=== PATIENT | male | born 1940 | race Caucasian/White ===

== ENCOUNTER 2016-04-27 09:23 | Outpatient (CLI) | payer MEDICARE, OTHER ==
[2013-05-15 16:13] VITALS: BP 118/62
== END 2016-04-27 09:24 ==
LOC: LAB 09:23
PROVIDERS: ATTEND Family Medicine
DX: E11.9 Type 2 diabetes mellitus without complications (principal)
CPT/HCPCS: 36415; 83036

== ENCOUNTER 2016-07-28 09:16 | Outpatient (CLI) | payer MEDICARE, OTHER ==
[2013-05-15 16:13] VITALS: BP 118/62
[2016-07-28 09:36] LABS: BASOPHILS % 0.4 (0.0-1.5); EOSINOPHILS % 2.4 % (0.0-6.8); MEAN CORPUSCULAR VOLUME 85.7 fl (80.0-100.0); MONOCYTES % 3.7 % (0.0-11.0); NEUTROPHILS # 3.2 # k/uL (1.4-7.7)
[2016-07-28 09:59] LABS: eGFR (African) > 60; eGFR (Non-African) > 60
== END 2016-07-28 09:17 ==
LOC: LAB 09:16
PROVIDERS: ATTEND Family Medicine
DX: E11.9 Type 2 diabetes mellitus without complications (principal); R41.3 Other amnesia; Z79.899 Other long term (current) drug therapy
CPT/HCPCS: 36415; 80053; 82607; 82746; 83036; 85025

== ENCOUNTER 2016-09-19 14:09 | Outpatient (CLI) | payer MEDICARE, OTHER ==
[2013-05-15 16:13] VITALS: BP 118/62
[2016-09-19 14:57] LABS: eGFR (African) > 60; eGFR (Non-African) > 60
--- NOTE | 2016-09-19 16:23 | Diagnostic Imaging Report ---
[facility] [address] [facility].[address] [address] Report Submission Date: Sep 19, 2016 4:08:52 PM CDT Patient Study Name: MAYURI JENKINS Date: Sep 19, 2016 2:25:50 PM CDT Modality Type: CR Gender: M Description: CHEST : 38 Institution: [facility] Physician: YASMIN VAZQUEZ Chest PA and lateral views Clinical history: Chest pain for 3 to 4 days Normal heart shadow and mediastinum. Clear lungs without acute infiltrate or pleural effusion. No pneumothorax. Normal appearing bony thorax. Impression: No active pulmonary pathology Electronically signed on Sep 19, 2016 4:08:52 PM CDT by: Simon RAJPUT
== END 2016-09-19 14:10 ==
LOC: RT 14:09
PROVIDERS: ATTEND Physician Assistant
DX: R07.9 Chest pain, unspecified (principal)
CPT/HCPCS: 36415; 71020; 80053; 84484

== ENCOUNTER 2016-11-06 10:44 | Outpatient (CLI) | payer MEDICARE, OTHER ==
[2013-05-15 16:13] VITALS: BP 118/62
== END 2016-11-06 10:45 ==
LOC: LAB 10:44
PROVIDERS: ATTEND Family Medicine
DX: E11.9 Type 2 diabetes mellitus without complications (principal)
CPT/HCPCS: 36415; 83036

== ENCOUNTER 2017-04-28 11:36 | Outpatient (CLI) | payer MEDICARE, OTHER ==
[2013-05-15 16:13] VITALS: BP 118/62
--- NOTE | 2017-04-28 12:17 | Diagnostic Imaging Report ---
[facility] [address] [facility].[address] 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 The pulmonary vasculature is normal. No pleural effusion, pneumothorax or alveolar consolidation. Impression: Negative Electronically signed on Apr 28, 2017 12:14:25 PM BRAKE LINING DRILLER by: Hussein RAJPUT
== END 2017-04-28 11:37 ==
LOC: LAB 11:36
PROVIDERS: ATTEND Family Medicine
DX: I25.9 Chronic ischemic heart disease, unspecified (principal); J20.9 Acute bronchitis, unspecified; R07.2 Precordial pain
CPT/HCPCS: 71020; 84484

== ENCOUNTER 2017-05-21 10:53 | Outpatient (CLI) | payer MEDICARE, OTHER ==
[2013-05-15 16:13] VITALS: BP 118/62
== END 2017-05-21 10:55 ==
LOC: LAB 10:53
PROVIDERS: ATTEND Family Medicine
DX: E11.9 Type 2 diabetes mellitus without complications (principal); E78.00 Pure hypercholesterolemia, unspecified
CPT/HCPCS: 36415; 80061; 83036

== ENCOUNTER 2017-06-08 13:32 | Emergency (ER) | payer MEDICARE, OTHER ==
[2017-06-08 14:01] LABS: BASOPHILS % 0.3 (0.0-1.5); MEAN CORPUSCULAR HEMOGLOBIN 29.6 pg (28.0-34.0); MEAN CORPUSCULAR VOLUME 85.6 fl (80.0-100.0); NEUTROPHILS # 3.6 # k/uL (1.4-7.7)
[2017-06-08] MEDS: ASPIRIN 81 MG CHEW TAB PO ONE (14:02)
[2017-06-08 14:07] LABS: eGFR (African) > 60; eGFR (Non-African) > 60
[2017-06-08] MEDS: KETOROLAC TROMETHAMINE 30 MG/1ML VIAL IVP ONE (15:08)
--- NOTE | 2017-06-08 16:33 | ED Physician Documentation ---
Chest Pain - HISTORIAN Historian: patient - HPI Stated Complaint: Chest Pain Chief Complaint: Chest Pain Additional Information: had flu last week, severe coughing, now gone Onset: days ago (2) Timing: sudden onset Duration: sudden-onset Last known Well Date: 06/06/17 Last Known Well Time: 00:00 Context: onset during:, activity Severity: mild Quality: sharp Front/Back of Body, Lg (Color): 1 - pain Chest Pain Radiation: no radiation Chest Pain Signs/Symptoms: denies: nausea, vomiting, diaphoresis, cool extremities, dizziness, dyspnea, tachypnea, tachycardia, hypotension, palpitations, weakness Worsened By: nothing Relieved By: nothing - ROS CONST: none MS/LYMPH: none GI/: none EYES/ENT: none SKIN/ENDO: none NEURO/PSYCH: none - PAST HX RI risk factors: hypertension, diabetes Type 2, hyperlipidemia, cardiac disease DVT/PE Risk Factors: none TAD/AAA risk factors: none Neuro deficit: none GI disease: none Lung disease: none Surgeries/Procedures: cardiac stent, other (eye surgery) Immunizations: referred to PCP Allergies/Adverse Reactions: Allergies Allergy/AdvReac Type Severity Reaction Status Date / Time No Known Allergies Allergy Unverified 06/08/17 13:43 Home Medications: Ambulatory Orders Medication Instructions Recorded [place]-3 Fatty Acids/Fish Oil [Fish 1 each PO DAILY #30 av 06/10/12 Oil 1,000 Mg Capsule] - SOCIAL HX Smoking History: non-smoker Alcohol Use: none Drug Use: none - FAMILY HX Family HX: none - VITAL SIGNS Vital Signs: Vital Signs Temp Pulse Resp BP Pulse Ox 97.1 F L 70 18 152/77 98 06/08/17 13:35 06/08/17 14:51 06/08/17 13:35 06/08/17 13:35 06/08/17 14:51 - REVIEWED ASSESSMENTS Nursing Assessment Reviewed: Yes Vitals Reviewed: Yes Progress - Results/Orders Results/Orders: cbc, cmp, ekg, trop, amylase, ua, cxr ordered - Progress Progress: pt. stable entire time in er, given asa 325 mg and toradol 30 mg ivp in er Critical Care Note - Critical Care Note Total Time (mins): 0 ED Results Lab/Radiology - Lab Results Lab Results: Lab Results 06/08/17 06/08/17 06/08/17 13:51 13:51 13:51 WBC 5.30 K/ul K/ul (4.00-12.00) RBC 4.29 M/ul M/ul (3.90-5.20) Hgb 12.7 g/dL g/dL (12.0-18.0) Hct 36.7 % L % (37.0-53.0) MCV 85.6 fl fl (80.0-100.0) MCH 29.6 pg pg (28.0-34.0) MCHC 34.5 g/dL g/dL (30.0-36.0) RDW 14.5 % H % (11.3-14.3) Plt Count 234 K/mm3 K/mm3 (130-400) Neut % (Auto) 68.2 % % (39.0-79.0) Lymph % (Auto) 22.8 % % (16.0-50.0) Ritchie % (Auto) 4.0 % % (0.0-11.0) Eos % (Auto) 2.0 % % (0.0-6.8) Baso % (Auto) 0.3 (0.0-1.5) Neut # (Auto) 3.6 # k/uL # k/uL (1.4-7.7) Lymph # (Auto) 1.2 # k/uL # k/uL (0.6-4.0) Ritchie # (Auto) 0.2 # k/uL # k/uL (0.0-0.9) Eos # (Auto) 0.1 # k/uL # k/uL (0.0-0.6) Baso # (Auto) 0.0 # k/uL # k/uL (0.0-0.5) Reactive Lymphs % 2.7 % % (0.0-5.0) Reactive Lymphs # 0.1 # k/uL # k/uL (0.0-0.8) Sodium 138 mmol/L mmol/L (136-145) Potassium 4.0 mmol/L mmol/L (3.5-5.1) Chloride 99 mmol/L mmol/L (98-107) Carbon Dioxide 26 mmol/L mmol/L (22-30) BUN 13 mg/dL mg/dL (9-20) Creatinine 1.10 mg/dL mg/dL (0.66-1.25) Estimated Creat Clear 55 Est GFR ( Amer) > 60 (60 - ) Est GFR (Non-Af Amer) > 60 (60 - ) Glucose 198 mg/dL H mg/dL (74-106) Calcium 9.1 mg/dL mg/dL (8.4-10.2) Total Bilirubin 0.8 mg/dL mg/dL (0.2-1.3) AST 27 U/L U/L (15-46) ALT 38 U/L U/L (13-69) Alkaline Phosphatase 66 U/L U/L (38-126) Troponin I < 0.03 ng/mL L ng/mL (0.03-0.06) Total Protein 6.6 g/dL g/dL (6.3-8.2) Albumin 4.0 g/dL g/dL (3.5-5.0) - Radiology Radiology Impressions: cxr neg - Orders Orders: ED Orders Category Date Time Status Continuous EKG monitoring Q30M Care 06/08/17 13:51 Active Continuous Pulse Oximetry Q30M Care 06/08/17 13:[address] IV Lock 1T Care 06/08/17 13:51 Active CHEST 2VIEW [RAD] Routine Exams 06/08/17 Ordered CBC/PLATELET/DIFF Routine Lab 06/08/17 13:51 Completed CMP Routine Lab 06/08/17 13:51 Completed TROPONIN I (cTnI) Stat Lab 06/08/17 13:51 Completed URINALYSIS Routine Lab 06/08/17 14:36 Ordered Aspirin Med 06/08/17 13:51 Discontinued 324 mg PO NOW ONE Ketorolac Tromethamine [Toradol] Med 06/08/17 14:54 Discontinued 30 mg IVP NOW ONE EKG WITH COMPARISON Stat Ther 06/08/17 13:51 Ordered Chest Pain Physical Exam - EXAM General Appearance: no acute distress, alert EENT: eye inspection normal, ENT inspection normal, pharynx normal, no signs of dehydration, NADIYA, no nystagmus, TM's nml Neck: nml inspection, no carotid bruit Respiratory: no resp. distress, nml breath sounds, other (tenderness left lateral chest) CVS: reg. rate & rhythm, no murmur, no gallop, no friction rub, pulses full, pulses equal Abdomen: soft, no organomegaly, normal bowel sounds, no abdominal bruit, no distension, non-tender Skin: warm/dry, normal color Extremities: non-tender, normal range of motion, no evidence of injury, no edema Neuro: oriented X3, CN's nml as tested, motor nml, sensation nml, mood/affect nml, cognition normal Discharge Clincal Impression: Chest wall muscle strain Qualifiers: Encounter type: initial encounter Qualified Code(s): S29.011A - Strain of muscle and tendon of front wall of thorax, initial encounter Referrals: Servando Cash MD [Primary Care Provider] - 2 Days Comments: Pt. discharged in stable condition with script for meloxicam 1 p.o. bid #10 Condition: Stable Disposition: 01 HOME, SELF-CARE Decision to Admit: NO Decision Time: 16:32
[2017-06-08 16:41] VITALS: BP 120/70
--- NOTE | 2017-06-08 19:07 | Diagnostic Imaging Report ---
PASHA MACHADO [facility] [address] [facility].[address] 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 History: CHEST PAIN X1 DAY. RT SIDE. (Hx) Comparison exam: 28 April 2017 Findings: PA lateral chest demonstrate a normal cardiac and mediastinal silhouette. Vascular calcifications involving the aortic arch. No focal infiltrate. No blunting of the costophrenic margins. Osseous structures are appropriate for age. Impression: No acute pulmonary process. Electronically signed on Jun 08, 2017 3:44:23 PM SENIOR PUBLICATIONS SPECIALIST by: Anatoliy RAJPUT
== END 2017-06-08 16:38 | disposition home or self-care (01) ==
LOC: ED 13:32
DX: S29.011A Strain of muscle and tendon of front wall of thorax, initial encounter (principal); I10 Essential (primary) hypertension; E11.9 Type 2 diabetes mellitus without complications; E78.5 Hyperlipidemia, unspecified; I51.9 Heart disease, unspecified; X58.XXXA Exposure to other specified factors, initial encounter; Y93.9 Activity, unspecified; Y92.9 Unspecified place or not applicable; Y99.9 Unspecified external cause status
CPT/HCPCS: 71046; 80053; 84484; 85025; 93005; J1885; 96374; 99282; 99283; S1016

== ENCOUNTER 2017-10-29 10:27 | Outpatient (CLI) | payer MEDICARE, OTHER | END 2017-10-29 10:30 | LOC: LAB 10:27 | PROVIDERS: ATTEND Family Medicine | DX: E11.9 Type 2 diabetes mellitus without complications (principal) | CPT/HCPCS: 36415; 83036 ==

== ENCOUNTER 2018-04-29 10:21 | Outpatient (CLI) | payer MEDICARE, OTHER | END 2018-04-29 10:22 | LOC: LAB 10:21 | PROVIDERS: ATTEND Family Medicine | DX: E11.9 Type 2 diabetes mellitus without complications (principal) | CPT/HCPCS: 36415; 83036 ==

== ENCOUNTER 2018-05-29 14:56 | Outpatient (CLI) | payer MEDICARE, OTHER ==
[2018-05-29 15:39] LABS: eGFR (Non-African) > 60
== END 2018-05-29 14:58 ==
LOC: LAB 14:56
PROVIDERS: ATTEND Internal Medicine Cardiovascular Disease
DX: I10 Essential (primary) hypertension (principal); I25.10 Atherosclerotic heart disease of native coronary artery without angina pectoris
CPT/HCPCS: 36415; 80053; 80061

== ENCOUNTER 2018-06-10 07:18 | Day surgery (SDC) | payer MEDICARE, OTHER ==
[2018-06-10] MEDS ORDERED: LIDOCAINE HCL 2% PF 100MG/5ML VIAL IJ ONE (08:48)
[2018-06-10] MEDS ORDERED: PROPOFOL 200 MG/20 ML VIAL IV ONE (08:48)
[2018-06-10] MEDS ORDERED: LACTATED RINGERS 1,000 ML IV.SOLN IV ONE (08:48)
--- NOTE | 2018-06-25 13:46 | GI Report ---
PROCEDURE PERFORMED: Colonoscopy. SURGEON: Uche Santos M.D., [place] INDICATION FOR PROCEDURE: This is a 77-year-old man who has had polyps in the past. He was referred for evaluation. PROCEDURE MEDICATION: Propofol, per Anesthesia. DESCRIPTION OF PROCEDURE: The Olympus video colonoscope was advanced through the rectum. At 60 cm he has a 0.5 cm polyp, removed with electrocautery. 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 The colonoscope was slowly advanced all the way to the cecum. The appendiceal orifice and terminal ileum were normal. On slow withdrawal, the cecum, ascending colon and transverse colon, no obvious intraluminal lesions noted. A polyp was removed at 60 cm. Extensive disease in the sigmoid colon. Retroflexion in the rectum was normal. RECOMMENDATIONS: 1. Pending the pathology of the polyp, follow-up colonoscopy in 5 years. 2. Increase fiber in the diet. UCHE SANTOS M.D., [place]. WILMER/david R: 06/24/18 Job#: [id number] Cc: Servando Cash M.D. [id number] [place] [address] Sent via ] [id number]
== END 2018-06-10 10:10 | disposition home or self-care (01) ==
LOC: OPSURG 07:18
PROVIDERS: ATTEND Internal Medicine Gastroenterology
DX: Z12.11 Encounter for screening for malignant neoplasm of colon (principal); K51.40 Inflammatory polyps of colon without complications; K57.30 Diverticulosis of large intestine without perforation or abscess without bleeding; Z86.010 Personal history of colon polyps
CPT/HCPCS: 45384; J2001; J2704; J7120; S1016

== ENCOUNTER 2018-07-31 11:23 | Outpatient (CLI) | payer MEDICARE, OTHER | END 2018-07-31 11:25 | LOC: LAB 11:23 | PROVIDERS: ATTEND Family Medicine | DX: E11.9 Type 2 diabetes mellitus without complications (principal) | CPT/HCPCS: 36415; 83036 ==

== ENCOUNTER 2019-02-05 09:35 | Emergency (ER) | payer OTHER ==
[2019-02-05 09:51] LABS: BASOPHILS % 0.2 % (0.0-1.5); NEUTROPHILS # 3.9 # k/uL (1.4-7.7)
--- NOTE | 2019-02-05 09:51 | ED Physician Documentation ---
General Adult - HISTORIAN Historian: patient - HPI Stated Complaint: chest pain Chief Complaint: General Adult Onset: days ago (3) Timing: still present Severity: mild Further Comments: yes (Pt is a 78 yo male with chest pain x 3 days. Pt has not had sob, n/v, or diaphoresis. Pain is in upper L chest toward L shoulder. Pain is achy and has been constant and the same for 3 days. Pt has hx NC w stent placement.) - ROS CONST: no problems EYES/ENT: none CVS/RESP: chest pain. denies: shortness of breath GI/: none MS/SKIN/LYMPH: none - PAST HX Past History: other (CAD, NC w stent placement, DM (oral meds only), HTN.) Surgeries/Procedures: cardiac stent Allergies/Adverse Reactions: Allergies Allergy/AdvReac Type Severity Reaction Status Date / Time No Known Drug Allergies AdvReac No Reaction Verified 02/05/19 09:46 Home Medications: Ambulatory Orders Medication Instructions Recorded Primidone [Mysoline] 1 tab PO TID 02/05/19 - SOCIAL HX Smoking History: non-smoker - FAMILY HX Family History: No - VITAL SIGNS Vital Signs: Vital Signs Temp Pulse Resp BP Pulse Ox 120/70 06/08/17 16:38 - REVIEWED ASSESSMENTS Nursing Assessment Reviewed: Yes Vitals Reviewed: Yes Progress - Progress Progress: ASA 324 po x 1 - EKG/XRAY/CT EKG: NSR (HR=62; short QT interval.) XRAY: chest (No acute pulmonary process.) ED Results Lab/Radiology - Orders Orders: ED Orders Category Date Time Status Continuous EKG monitoring Q30M Care 02/05/19 09:48 Active Continuous Pulse Oximetry Q30M Care 02/05/19 09:[address] IV Lock 1T Care 02/05/19 09:48 Active CBC/PLATELET/DIFF Stat Lab 02/05/19 09:48 Ordered CKMB Stat Lab 02/05/19 Ordered CMP Stat Lab 02/05/19 Ordered CREATINE KINASE Stat Lab 02/05/19 Ordered NT BNP Stat Lab 02/05/19 Ordered TROPONIN I Stat Lab 02/05/19 Ordered Aspirin [Michael] Med 02/05/19 09:48 Discontinued 324 mg PO NOW ONE Oxygen Daily Oxygen 02/05/19 10:00 Ordered EKG WITH COMPARISON Stat Ther 02/05/19 09:48 Ordered General Adult Physical Exam - PHYSICAL EXAM GENERAL APPEARANCE: no distress EENT: pharynx normal NECK: normal inspection, supple RESPIRATORY: no resp distress, chest non-tender, breath sounds normal CVS: reg rate & rhythm, heart sounds normal, equal pulses ABDOMEN: soft, no organomegaly, normal bowel sounds BACK: normal inspection, no CVA tenderness SKIN: warm/dry, normal color EXTREMITIES: non-tender, normal range of motion, no evidence of injury, no edema NEURO: oriented X3, motor nml, sensation nml Discharge Clincal Impression: Non-cardiac chest pain, elevated blood glucose Referrals: Servando Cash MD [Primary Care Provider] - Condition: Stable Disposition: 01 HOME, SELF-CARE Decision to Admit: NO Decision Time: 12:36
[2019-02-05] MEDS: ASPIRIN 81 MG CHEW TAB PO ONE (09:55)
--- NOTE | 2019-02-05 10:31 | Diagnostic Imaging Report ---
PATIENT MR#: [id number] PATIENT PATIENT NAME: MAYURI JENKINS DATE OF : 1940 REFERRING PHYSICIAN: Galen Heath EXAM DATE: 02/05/2019 ACCESSION NUMBER: [id number] EXAM DESCRIPTION: CHEST 1VIEW Examination: Portable chest History: Evaluate lungs Comparison exam: None provided. Findings: Single view of the chest demonstrates a normal cardiac and mediastinal silhouette. Aortic a rch vascular calcifications. Elevated right hemidiaphragm. Lung reid without focal infiltrate. No blunting of th e costophrenic margins. Osseous structures are appropriate for age. Impression: No acute pulmonary process. Read by: Dr. Anatoliy Ballard Transcribed by: Transcribed Date: Electronically signed by: Dr. Anatoliy Ballard Date signed: 02/05/2019 10:30:48 AM
[2019-02-05 11:48] LABS: eGFR (Non-African) > 60
[2019-02-05 12:55] VITALS: BP 135/64
== END 2019-02-05 12:45 | disposition home or self-care (01) ==
LOC: ED 09:35
DX: R07.89 Other chest pain (principal); R73.09 Other abnormal glucose
CPT/HCPCS: 71045; 80053; 82550; 82553; 83880; 84484; 85025; 93005; 99284; S1016